=== PATIENT | female | born 1955 | race Caucasian/White ===

== ENCOUNTER 2024-05-16 20:01 | Emergency (ER) | payer MEDICARE, BC, SELFPAY ==
[2024-05-16 20:03] VITALS: BP 129/84; PULSE 73; RESP 17; TEMP 36.6; O2SAT 97; BMI 21.9
[2024-05-16 20:04] VITALS: PULSE 75; RESP 17; BMI 20.7
--- NOTE | 2024-05-16 20:05 | XR_ITS ---
Examination: AP chest single view Technique one AP portable semiupright chest single view Exam date and time: May 16, [id number] hrs. Indications: Syncope today Findings: Normal heart size No pneumonia or pulmonary edema The osseous structures are intact Impression: No aspiration pneumonia
--- NOTE | 2024-05-16 20:06 | PD.EDADULT ---
ED General RME/HPI General Chief complaint: Syncope / Near Syncope Stated complaint: SYNCOPAL EPISODE Time Seen by Provider: 05/16/24 20:04 Arrival date/time: 05/16/24 20:01 CC: Syncope versus near syncope HPI patient is mildly demented and per family report to EMS the patient reported to them that she had fallen . Patient is complaining of some low back pain which she said is new, patient is unable to state whether she lost consciousness or not. Family member state the patient has become mildly more confused over the recent past. Patient is awake alert aware of her self and surroundings. Does not appear in any acute distress More detailed interview. The patient states she slipped and fell in the bathroom striking her right hip on the toilet. Patient is not sure if she passed out or not. Patient is exceedingly poor historian is able to recall date time medications primary care doctor's name. Related Data Home Medications ?Medication ?Instructions ?Recorded ?Confirmed simvastatin 20 mg tablet (Zocor) 20 mg PO HS #0 tabs 12/15/16 04/05/18 calcium citrate 600 mg PO QDAY 03/02/18 04/05/18 cholecalciferol (vitamin D3) 125 25,000 unit PO QWEEK 03/02/18 04/05/18 mcg (5,000 unit) tablet (Vitamin D3) diclofenac sodium 75 mg 75 mg PO BID 03/02/18 04/05/18 tablet,delayed release multivitamin with minerals 1 tab PO QDAY 03/02/18 04/05/18 (Hair,Skin and Nails tablet) pantoprazole 20 mg tablet,delayed 20 mg PO QDAY 03/02/18 04/05/18 release sertraline 50 mg tablet (Zoloft) 50 mg PO QDAY 03/02/18 04/05/18 sumatriptan succinate 100 mg 100 mg PO BID 03/02/18 04/05/18 tablet (Imitrex) vitamin B comp with C no.4 150 mg 1 tab PO QDAY 03/02/18 04/05/18 tablet (Super B Complex + C) Allergies Allergy/AdvReac Type Severity Reaction Status Date / Time latex Allergy Unknown Verified 04/05/18 08:17 Review of Systems Review of Systems Narrative Review of Systems: GEN: No fever, no chills, no weight loss EYES: No discharge, no visual changes, no pain HEENT: No ear pain, no congestion, no sore throat PULM: No shortness of breath, no cough, no congestion CV: No chest pain, no dyspnea on exertion, no palpitations GI: No nausea, no vomiting, no diarrhea, no pain, no constipation : No frequency, no urgency, no dysuria MUSC/SKEL: No joint pain, no back pain SKIN: No rash PSYCH: No hallucinations, no depression HEME/LYMPH: No easy bleeding or bruising tendencies NEURO: No weakness, no headache, + near syncope ED Exam Narrative Physical exam: [General: Appears not acute distress Head normocephalic no step-offs hematoma induration ulceration or depression HEENT: Eyes: Pupils are PERRLA EOMs are intact conjunctiva not injected mouth pink moist membranes uvula is midline swallow symmetrical nose no rhinorrhea or otorrhea face: No raccoon's eyes velazco signs no ecchymosis or bleeding abrasions in the face. All other subsystems of ATTR within acceptable limits Neck is supple nontender including palpation of the spinous processes no JVD or edema. Full range of motion of the neck including rotation flexion and extension. Chest equal chest rise nontender to palpation Respiratory: Clear to auscultation no wheezes crackles or rubs CV: Rate rhythm is regular no murmurs rubs or clicks Abdomen is distended secondary to body habitus soft nontender no masses positive bowel sounds all 4 quadrants Back: Right paralumbar tenderness with palpation no spinous process tenderness no tenderness palpation of the thoracic and cervical spine. Skin: Intact no petechiae rash induration ulceration or crepitus Extremities: Moving all extremity against resistance cap refill less than 2 seconds neurosensory intact Neuro: Awake alert oriented x2, person and place, Glascow coma 15 no focal deficits] Course Quality Measures none Orders Category Date Time Status EKG (ED ONLY) *Do not use* NOW Care 05/16/24 20:[address] head/brain wo con Stat Exams 05/16/24 21:20 Completed EKG (ED Only) Stat Exams 05/16/24 20:05 Ordered XR chest 1V Stat Exams 05/16/24 20:05 Completed XR hip RT w pelvis 2-3V Stat Exams 05/16/24 21:12 Completed XR lumbar spine 2-3V Stat Exams 05/16/24 20:10 Completed B-Type Natriuretic Peptide Stat Lab 05/16/24 20:19 Completed CBC Stat Lab 05/16/24 20:19 Completed Comprehensive Metabolic Panel Stat Lab 05/16/24 20:19 Completed Drug Screen,Urine Stat Lab 05/16/24 20:27 Completed LDH (Lactate Dehydrogenase) Stat Lab 05/16/24 20:19 Completed Magnesium Stat Lab 05/16/24 20:19 Completed Partial Thromboplastin Time Stat Lab 05/16/24 20:19 Completed Prothrombin Time with INR Stat Lab 05/16/24 20:19 Completed Troponin I Stat Lab 05/16/24 20:19 Completed Urinalysis Stat Lab 05/16/24 20:27 Completed Vital Signs Vital signs: Vital Signs Temperature 97.9 F 05/16/24 20:03 Pulse Rate 73 05/16/24 20:03 Respiratory Rate 17 05/16/24 20:03 Blood Pressure 129/84 05/16/24 20:03 Pulse Oximetry (%) 97 05/16/24 20:03 Oxygen Delivery Method Room Air 05/16/24 20:[address] [facility] Patient data External records reviewed:: [facility] previous records and EMS form Clinical information provided by:: patient and EMS Social determinants that could affect healthcare access:: none Patient has the following chronic illnesses:: Dementia breast cancer How is presenting disease/condition affected by chronic disease/condition?: uneffected by Evaluation data The following diagnostics were reviewed and interpreted by me:: lab results, radiology exam(s) and EKG tracing(s) Lab and/or radiology exams considered but not ordered:: EKG performed at 2623 shows ventricular rate 60 DE interval 135 QRS of 101 QTc of 282 is a sinus rhythm left axis deviation. No old EKG for comparison. Interpretation Summary: Syncope Medications Medications considered but not ordered:: None Medication administrations:: None Consultations Consultation(s) initiated? (list below): No Diagnosis Differential Diagnosis ED Complaint MDM: ACS intracranial hemorrhage syncope Most likely diagnosis given after review of the tests above:: Syncope Admission Indicated Admission indicated?: not indicated Explain why admission is indicated or not indicated:: Stable for outpatient follow-up Admission Request Was there a request for admission?: No Disposition Plan Disposition Plan: Discharge Discharge Attestation Discharge Attestation: The patient and all family members were given an opportunity to ask questions and understood the discharge instructions. Discharge instructions specifically effects, indications for sooner follow up or return to the emergency department, and the expected course of current diagnosis. Patient condition: Stable Medical Decision Making Differential Diagnosis Differential Diagnosis: ACS intracranial hemorrhage syncope Lab Data 05/16/24 20:19 05/16/24 20:19 Labs: Lab Results 05/16/24 05/16/24 Range/Units 20:19 20:27 WBC 10.0 (3.6-11.0) Thou/mm3 RBC 4.90 (4.00-5.20) Miln/mm3 Hgb 14.4 (12.0-16.0) g/dL Hct 41.5 (36.0-46.0) % MCV 85 (80-100) fL MCH 29.4 (25.0-35.0) pg MCHC 34.7 (31.0-37.0) g/dl RDW Std Deviation 41.1 (36.4-46.3) fL Plt Count 190 (140-440) Thou/mm3 Neut % (Auto) 73 (37-80) % Lymph % (Auto) 19 (10-50) % [place] % (Auto) 6 (0-12) % Eos % (Auto) 1 (0-10) % Baso % (Auto) 0 (0-2.5) % Neut # (Auto) 7.3 (1.8-7.7) Thou/mm3 Lymph # (Auto) 1.9 (1.0-4.8) Thou/mm3 [place] # (Auto) 0.6 (0.0-0.8) Thou/mm3 Eos # (Auto) 0.1 (0.0-0.5) Thou/mm3 Baso # (Auto) 0.0 (0.0-0.2) Thou/mm3 Immature Gran # (Auto) 0.08 H (0.00-0.00) Thou/mm3 Absolute Nucleated RBC 0.00 (0.00-0.00) Thou/mm3 Immature Gran % 1 H (0-0) % Nucleated RBC % 0 (0) /100 WBC PT 11.4 (9.0-12.2) Seconds INR 1.0 (0.9-1.3) APTT 22.2 (22.0-36.0) Seconds Sodium 142 (136-145) mMol/L Potassium 3.0 L (3.4-5.1) mMol/L Chloride 105 (98-107) mMol/L Carbon Dioxide 26.3 (20.0-31.0) mMol/L Anion Gap 11 (7-16) BUN 10 (9-23) mg/dL Creatinine 0.9 (0.6-1.3) mg/dL Estim Creat Clear Calc 52.1 L (>60) mL/min eGFR > 60 (60 - ) See Note BUN/Creatinine Ratio 11 L (12-20) Ratio Glucose 127 H (74-106) mg/dL Calculated Osmolality 284 (275-295) Calcium 9.7 (8.3-10.6) mg/dL Corrected Calcium 9.7 (8.5-10.1) mg/dL Magnesium 1.7 (1.6-2.6) mg/dL Total Bilirubin 0.5 (0.3-1.2) mg/dL AST 21 (0-34) U/L ALT 20 (10-49) U/L Alkaline Phosphatase 96 (46-116) U/L Lactate Dehydrogenase 192 (120-246) U/L Troponin I < 0.020 (0.0-0.045) ng/mL B-Natriuretic Peptide < 20 (0-100) pg/mL Total Protein 6.3 (5.7-8.2) gm/dL Albumin 4.2 (3.4-4.8) gm/dL Globulin 2.1 L (2.3-3.5) gm/dL Albumin/Globulin Ratio 2.0 (1.2-2.2) Ur Collection Type Clean Catch Urine Color Lt-Yellow (Lt Yel-Yel) Urine Clarity Clear (Clear/Hazy) Urine pH 6.0 (5.0-7.0) Ur Specific [place] 1.007 (1.001-1.035) Urine Protein Negative (Neg - Trace) Urine Glucose (UA) Negative (Negative) Urine Ketones Negative (Negative) Urine Blood Negative (Negative) Urine Nitrite Negative (Negative) Urine Bilirubin Negative (Negative) Urine Urobilinogen (Auto) Negative (0.0-1.0) mg/dL Ur Leukocyte Esterase Negative (Negative) Urine RBC 0 (0-3) /hpf Urine WBC 1 (0-5) /hpf Ur Squamous Epith Cells < 1 (0-5) /hpf Urine Bacteria None (None) Urine Opiates Screen Negative (Negative) Urine Fentanyl Screen Negative (Negative) Ur Barbiturates Screen Negative (Negative) U Amphetamin/Meth Scrn Negative (Negative) U Benzodiazepines Scrn Negative (Negative) U Cocaine Metab Screen Negative (Negative) U Marijuana (THC) Screen Negative (Negative) Discharge Plan Plan Patient Disposition: HOME (Self Care) Patient condition on transfer: Stable Prescriptions/Referrals Prescriptions/Med Rec: No Action simvastatin [Zocor] 20 MG tablet 20 mg PO HS Qty: 0 sumatriptan succinate [Imitrex] 100 mg Tablet 100 mg PO BID pantoprazole 20 mg Tablet,Delayed Release (Dr/Ec) 20 mg PO QDAY multivitamin with minerals [Hair,Skin and Nails] Tablet 1 tab PO QDAY sertraline [Zoloft] 50 mg Tablet 50 mg PO QDAY calcium citrate 250 mg calcium Tablet 600 mg PO QDAY vitamin B comp with C no.4 [Super B Complex + C] 150 mg Tablet 1 tab PO QDAY cholecalciferol (vitamin D3) [Vitamin D3] 5,000 unit Tablet 25,000 unit PO QWEEK diclofenac sodium 75 mg Tablet,Delayed Release (Dr/Ec) 75 mg PO BID Referrals: Melissa Bravo, [employer] INSPECTOR [Primary Care Provider] - In 1 week Problem List Clinical Impression: Fall, Contusion of hip, right Patient/Caregiver Discharge Instructions Education Materials: Preventing Falls How to ..., Bone Contusion, ED Hip Contusion Print Language: Vincentian Stand Alone Forms: Nathalie Award Info., Work/School Release, Patient Portal Info Letter PA/VIKRAM Supervising Physician PA/WIC SITE COORDINATOR Supervising Physician: Akin Georges ENP
--- NOTE | 2024-05-16 20:10 | XR_ITS ---
Examination: Lumbar spine 3 views Technique one AP lateral coned lateral lower lumbar spine 3 views Exam date and time: May 16, [id number] hrs. Indications: Patient fell today with injury to the back, lower back pain. Findings: Significant osteopenia Lumbar levoscoliosis 15 degrees No acute lumbar fracture Advanced disc narrowing L1-L2 Moderate lumbar spondylosis Impression: No acute lumbar fracture
[2024-05-16 20:19] VITALS: BP 128/76; PULSE 73; RESP 24; O2SAT 92
[2024-05-16 20:28] LABS: Basophils % (Auto) 0 % (0-2.5); Eosinophils # (Auto) 0.1 Thou/mm3 (0.0-0.5); Eosinophils % (Auto) 1 % (0-10); Hematocrit 41.5 % (36.0-46.0); Hemoglobin 14.4 g/dL (12.0-16.0); Immature Granulocytes % (Auto) 1 % (0-0); Immature Granulocytes Auto 0.08 Thou/mm3 (0.00-0.00); Lymphocytes # (Auto) 1.9 Thou/mm3 (1.0-4.8); Lymphocytes % (Auto) 19 % (10-50); Mean Corpuscular HGB Conc 34.7 g/dl (31.0-37.0); Mean Corpuscular Hemoglobin 29.4 pg (25.0-35.0); Mean Corpuscular Volume 85 fL (80-100); Monocytes # (Auto) 0.6 Thou/mm3 (0.0-0.8); Monocytes % (Auto) 6 % (0-12); Neutrophils # (Auto) 7.3 Thou/mm3 (1.8-7.7); Neutrophils % (Auto) 73 % (37-80); Nucleated Red Blood Cell % 0 /100 WBC (0); Platelet Count 190 Thou/mm3 (140-440); RDW Standard Deviation 41.1 fL (36.4-46.3)
[2024-05-16 20:45] LABS: Partial Thromboplastin Time 22.2 Seconds (22.0-36.0); Prothrombin Time 11.4 Seconds (9.0-12.2)
[2024-05-16 21:01] LABS: B-Type Natriuretic Peptide < 20 pg/mL (0-100)
[2024-05-16 21:05] LABS: Collection Type, Urine Clean Catch; RBC,Urine 0 /hpf (0-3)
[2024-05-16 21:05] LABS: Alanine Aminotransferase 20 U/L (10-49); Albumin, Serum 4.2 gm/dL (3.4-4.8); Alkaline Phosphatase 96 U/L (46-116); Anion Gap 11 (7-16); Aspartate Amino Transferase 21 U/L (0-34); BUN/Creatinine Ratio 11 Ratio (12-20); Bilirubin,Total 0.5 mg/dL (0.3-1.2); Blood Urea Nitrogen 10 mg/dL (9-23); Calcium 9.7 mg/dL (8.3-10.6); Calcium (Corrected) 9.7 mg/dL (8.5-10.1); Carbon Dioxide 26.3 mMol/L (20.0-31.0); Chloride 105 mMol/L (98-107); Creatinine (Component) 0.9 mg/dL (0.6-1.3); Estimated Creatinine Clearance 52.1 mL/min (>60); Globulin 2.1 gm/dL (2.3-3.5); Glucose 127 mg/dL (74-106); Magnesium 1.7 mg/dL (1.6-2.6); Osmolality,Calculated 284 (275-295); Sodium 142 mMol/L (136-145); Total Protein 6.3 gm/dL (5.7-8.2); Troponin I < 0.020 ng/mL (0.0-0.045); eGFR > 60 See Note
[2024-05-16 21:11] LABS: Bilirubin,Urine Negative (Negative); Blood,Urine Negative (Negative); Clarity,Urine Clear (Clear/Hazy); Color,Urine Lt-Yellow (Lt Yel-Yel); Glucose, Urine Negative (Negative); Ketones,Urine Negative (Negative); Leukocyte Esterase,Urine Negative (Negative); Nitrite,Urine Negative (Negative); Protein,Urine Negative (Neg - Trace); Specific Gravity,Urine 1.007 (1.001-1.035); Squamous Epithelial Cell,Urine < 1 /hpf (0-5); Urobilinogen,Urine Negative mg/dL (0.0-1.0); WBC,Urine 1 /hpf (0-5)
--- NOTE | 2024-05-16 21:12 | XR_ITS ---
Examination:Right hip AP, lateral, AP pelvis 3 views Technique: Hip AP lateral, AP pelvis, 3 views Exam date and time:May 16, 2024 2147 hrs. Indications: Patient fell today with injury to the right hip, right hip pain. Findings: No acute fracture No hip dislocation Left hip bones of the pelvis intact Impression: No acute hip or pelvic fracture If pain persists, recommend 1-2 day follow-up AP pelvis film.
[2024-05-16 21:18] LABS: Amphetamine/Methamp Scrn,U Negative (Negative); Barbiturate Screen,Urine Negative (Negative); Benzodiazepines Screen,Urine Negative (Negative); Benzoylecgonine Screen, Ur Negative (Negative); Fentanyl Screen,Urine Negative (Negative); Opiate Screen,Urine Negative (Negative); THC Screen,Urine Negative (Negative)
[2024-05-16 21:20] LABS: LDH (Lactate Dehydrogenase) 192 U/L (120-246)
--- NOTE | 2024-05-16 21:20 | XR_ITS ---
Examination: CT brain head without contrast. 2-D sagittal coronal reconstructions Date and time of exam:May 16, 2024 1045 hrs. Indications: Patient fell today with injury to the head, head pain CTDI: vol (mGy):45.7 DLP: (mGycm):876 Technique: Multiple CT axial sections of the brain have been obtained, 5 mm slice thickness. Contrast has not been administered. 2-D sagittal, coronal reconstructions have been obtained Low dose protocols were performed. One or more of the following dose reduction techniques were used; automated exposure control, adjustment of the mA and/or KV according to patient size, use of iterative reconstruction technique. Findings: No significant ventricular enlargement. Intra-axial or extra-axial hemorrhage density is not seen. No mass effect or midline shift Basal cisterns are not remarkable. Fourth ventricle is midline. Cranial vault intact. Impression: Negative for acute hemorrhage, mass effect or midline shift
[2024-05-17 00:11] VITALS: BP 114/72; PULSE 72; TEMP 36.8; O2SAT 97
== END 2024-05-17 00:45 | disposition home or self-care (01) ==
PROVIDERS: Registered Nurse General Practice; Emergency Provider Emergency Medicine; PCP Registered Nurse
DX: S70.01XA Contusion of right hip, initial encounter (principal); R55 Syncope and collapse; S39.92XA Unspecified injury of lower back, initial encounter; S09.90XA Unspecified injury of head, initial encounter; F03.90 Unspecified dementia, unspecified severity, without behavioral disturbance, psychotic disturbance, mood disturbance, and anxiety; R94.31 Abnormal electrocardiogram [ECG] [EKG]; W01.198A Fall on same level from slipping, tripping and stumbling with subsequent striking against other object, initial encounter
CPT/HCPCS: 36415; 70450; 71045; 72100; 73502; 80053; 80307; 81001; 83615; 83735; 83880; 84484; 85025; 85610; 85730; 93005; 99284

== ENCOUNTER 2024-07-16 12:36 | Emergency (ER) | payer MEDICARE, SELFPAY ==
[2024-07-16 12:54] VITALS: BP 135/81; PULSE 91; RESP 18; TEMP 36.7; O2SAT 98; BMI 22.5
--- NOTE | 2024-07-16 12:57 | PD.EDRME ---
Rapid Medical Screening Exam [facility] Arrival date/time: 07/16/24 12:36 69-year-old female with a history of dementia, breast cancer, presents to the emergency room with a chief complaint of nausea and vomiting x 3 weeks. Family at bedside states the patient oral intake has significantly decreased. And that she vomits after taking her medication and eating. Family at bedside states that she has had increased weakness and fatigue. I have greeted and performed a focused initial assessment of this patient. A comprehensive ED assessment and evaluation of the patient, analysis of all test results, and completion of the medical decision making process will be conducted by additional ED providers. Chief Complaint: Nausea/Vomiting/Diarrhea Vital signs: Vital Signs Temperature 98.1 F 07/16/24 12:54 Pulse Rate 91 07/16/24 12:54 Respiratory Rate 18 07/16/24 12:54 Blood Pressure 135/81 H 07/16/24 12:54 Pulse Oximetry (%) 98 07/16/24 12:54 Oxygen Delivery Method Room Air 07/16/24 12:54 Vital signs reviewed by provider: Yes
[2024-07-16 13:12] LABS: Basophils % (Auto) 0 % (0-2.5); Eosinophils % (Auto) 0 % (0-10); Hematocrit 46.9 % (36.0-46.0); Hemoglobin 16.1 g/dL (12.0-16.0); Immature Granulocytes % (Auto) 0 % (0-0); Immature Granulocytes Auto 0.03 Thou/mm3 (0.00-0.00); Lymphocytes # (Auto) 1.5 Thou/mm3 (1.0-4.8); Lymphocytes % (Auto) 15 % (10-50); Mean Corpuscular HGB Conc 34.3 g/dl (31.0-37.0); Mean Corpuscular Hemoglobin 29.1 pg (25.0-35.0); Mean Corpuscular Volume 85 fL (80-100); Monocytes # (Auto) 0.6 Thou/mm3 (0.0-0.8); Monocytes % (Auto) 6 % (0-12); Neutrophils # (Auto) 7.8 Thou/mm3 (1.8-7.7); Neutrophils % (Auto) 78 % (37-80); Nucleated Red Blood Cell % 0 /100 WBC (0); Platelet Count 240 Thou/mm3 (140-440); RDW Standard Deviation 42.4 fL (36.4-46.3); Red Blood Count 5.54 Miln/mm3 (4.00-5.20)
[2024-07-16] MEDS: ONDANSETRON ODT 4 MG TABRAP PO (13:20)
[2024-07-16 14:01] LABS: Alanine Aminotransferase 17 U/L (10-49); Albumin, Serum 4.6 gm/dL (3.4-4.8); Alkaline Phosphatase 77 U/L (46-116); Anion Gap 16 (7-16); Aspartate Amino Transferase 22 U/L (0-34); BUN/Creatinine Ratio 15 Ratio (12-20); Bilirubin,Total 0.7 mg/dL (0.3-1.2); Blood Urea Nitrogen 12 mg/dL (9-23); Calcium 9.7 mg/dL (8.3-10.6); Calcium (Corrected) 9.7 mg/dL (8.5-10.1); Carbon Dioxide 21.8 mMol/L (20.0-31.0); Chloride 102 mMol/L (98-107); Creatinine (Component) 0.8 mg/dL (0.6-1.3); Estimated Creatinine Clearance 49.4 mL/min (>60); Globulin 2.3 gm/dL (2.3-3.5); Glucose 94 mg/dL (74-106); Lipase 46 U/L (12-53); Osmolality,Calculated 279 (275-295); Potassium 3.4 mMol/L (3.4-5.1); Sodium 140 mMol/L (136-145); Total Protein 6.9 gm/dL (5.7-8.2); eGFR > 60 See Note
[2024-07-16 15:48] VITALS: BP 119/82; PULSE 83; RESP 14; TEMP 36.8; O2SAT 97
--- NOTE | 2024-07-16 17:25 | EDNOTE_ITS ---
<Statement entered by Stephany Gan MD - 07/18/24 01:46> As co-signing physician, I was present and available for consult prn. I concur with the plan and care as documented by the midlevel provider. ED General RME/HPI General Chief complaint: Nausea/Vomiting/Diarrhea Stated complaint: VOMITS IN AM X 3 WKS; BARELY EATS Time Seen by Provider: 07/16/24 17:19 Arrival date/time: 07/16/24 12:36 CC: Nausea vomiting HPI ongoing intermittent for the past 3 weeks. Family member states the patient has poor p.o. intake. Patient is a fairly poor historian. Review the medical records show a history of ductal breast cancer with mastectomy years ago. RME / HPI RME / HPI narrative: 07/16/24 12:36 69-year-old female with a history of dementia, breast cancer, presents to the emergency room with a chief complaint of nausea and vomiting x 3 weeks. Family at bedside states the patient oral intake has significantly decreased. And that she vomits after taking her medication and eating. Family at bedside states that she has had increased weakness and fatigue. I have greeted and performed a focused initial assessment of this patient. A comprehensive ED assessment and evaluation of the patient, analysis of all test results, and completion of the medical decision making process will be conducted by additional ED providers. Related Data Home Medications ?Medication ?Instructions ?Recorded ?Confirmed simvastatin 20 mg tablet (Zocor) 20 mg PO HS #0 tabs 0 12/15/16 04/05/18 calcium citrate 600 mg PO QDAY 03/02/1803/24 cholecalciferol (vitamin D3) 125 25,000 unit PO QWEEK 03/02/18 04/05/18 mcg (5,000 unit) tablet (Vitamin D3) diclofenac sodium 75 mg 75 mg PO BID 03/02/18 tablet,delayed release multivitamin with minerals 1 tab PO QDAY 03/02/1803/24 (Hair,Skin and Nails tablet) pantoprazole 20 mg tablet,delayed 20 mg PO QDAY 04/05/18 release sertraline 50 mg tablet (Zoloft) 50 mg PO QDAY 8 04/05/18 sumatriptan succinate 100 mg 100 mg PO BID 03/02/18 tablet (Imitrex) vitamin B comp with C no.4 150 mg 1 tab PO QDAY 04/05/18 tablet (Super B Complex + C) Previous Rx's ?Medication ?Instructions ?Recorded ondansetron 4 mg disintegrating 4 mg PO Q8H #20 tabs 0 07/16/24 tablet Allergies Allergy/AdvReac Type Severity Reaction Status Date / Time latex Allergy Unknown Verified 07/16/24 12:38 Review of Systems Review of Systems Narrative Review of Systems: GEN: No fever, no chills, no weight loss EYES: No discharge, no visual changes, no pain HEENT: No ear pain, no congestion, no sore throat PULM: No shortness of breath, no cough, no congestion CV: No chest pain, no dyspnea on exertion, no palpitations GI: No nausea, no vomiting, no diarrhea, no pain, no constipation : No frequency, no urgency, no dysuria MUSC/SKEL: No joint pain, no back pain SKIN: No rash PSYCH: No hallucinations, no depression HEME/LYMPH: No easy bleeding or bruising tendencies NEURO: No weakness, no headache Past Medical History Past Medical History NEUROLOGIC: Positive Neurological Disorders and Migraine; Negative Seizures CARDIAC: Positive Cardiac Disorders and Hypercholesterolemia; Negative Congestive Heart Failure RESPIRATORY: Negative Chronic Obstructive Pulmonary Disease (COPD) GASTROINTESTINAL: Positive Gastrointestinal Disorders and Gastroesophageal Reflux Disease GENITOURINARY: Negative Genitourinary Disorders or Renal Disease REPRODUCTIVE: Positive Breast Cancer MUSCULOSKELETAL: Negative Musculoskeletal Disorders ENT: Positive Cataracts ENDOCRINE: Negative Endocrine Disorders, Diabetes Mellitus Type 1 or Diabetes Mellitus Type 2 HEMATOLOGIC: Negative Blood Disorders PSYCHO/SOCIAL: Positive Depression and Anxiety OTHER HISTORY: Positive Breast Cancer; Negative Blood Transfusions, Blood Transfusion Reaction or Anesthesia Reactions Surgical History SURGICAL: Positive Abdominal Surgery; Negative Cardiac Surgery, Endocrine Surgery or Neurologic Surgery Social History SMOKING STATUS: Never smoker ED Exam Narrative Physical exam: [General: Deconditioned but not emaciated not in any acute distress Head normocephalic HEENT: Within acceptable limits Neck is supple nontender Chest equal chest rise nontender to palpation Respiratory: Clear to auscultation no wheezes crackles or rubs CV: Rate rhythm is regular no murmurs rubs or clicks Abdomen is flat, soft nontender no masses positive bowel sounds all 4 quadrants Back: No CVA tenderness no spinous process tenderness from cervical spine thoracic and lumbar spine Skin: Intact no petechiae rash induration ulceration or crepitus Extremities: Moving all extremity against resistance cap refill less than 2 seconds neurosensory intact Neuro: Awake alert oriented x2, person and place Glascow coma 15 no focal deficits] Course Quality Measures none Orders Category Date Time Status Saline [Insert IV] NOW Care 07/16/24 17:20 Active CBC Stat Lab 07/16/24 13:00 Completed CMP [Comprehensive Metabolic Panel] Stat Lab 07/16/24 13:00 Completed Creatine Kinase Stat Lab 07/16/24 13:00 Completed Lipase Stat Lab 07/16/24 13:00 Completed UA [Urinalysis] Stat Lab 07/16/24 21:04 Completed Urine Culture Stat Lab 07/16/24 21:04 Received Ondansetron Odt [Zofran Odt] Med 07/16/24 12:57 Discontinued 4 mg PO X1 ONE Sodium Chloride 0.9% 1000 ml [Ns] 1,000 ml Med 07/16/24 17:20 Discontinued IV 999 mls/hr Vital Signs Vital signs: Vital Signs Temperature 98.1 F 07/16/24 12:54 Pulse Rate 91 07/16/24 12:54 Respiratory Rate 18 07/16/24 12:54 Blood Pressure 135/81 H 07/16/24 12:54 Pulse Oximetry (%) 98 07/16/24 12:54 Oxygen Delivery Method Room Air 07/16/24 12:54 [facility] Patient data [place] [facility] [place] Clinical information provided by:: patient and family Social determinants that could affect healthcare access:: none Patient has the following chronic illnesses:: Breast cancer hypercholesterolemia How is presenting disease/condition affected by chronic disease/condition?: u neffected by Evaluation data The following diagnostics were reviewed and interpreted by me:: lab results and radiology exam(s) Lab and/or radiology exams considered but not ordered:: CBC shows no leukocytosis patient is hemoconcentrated at 16.1 and 46.9 platelets of 240. CMP shows no significant electrolyte imbalances renal impairment transaminitis or T. bili elevation. Lipase of 46. Urine shows 4+ ketones. No other acute finding suggestive of UTI Interpretation Summary: Patient appears dry but there is no clinical indication elevated BUN and creatinine. Patient has had no episodes of nausea vomiting throughout her visit the emergency room at this time comfortable discharging the patient Medications Medications considered but not ordered:: None Medication administrations:: Medication Administration History Discontinued Medications Sodium Chloride (Ns) 1,000 mls @ 999 mls/hr IV .Q1H1M ONE Stop: 07/16/24 18:20 Last Infusion: 07/16/24 18:59 Dose: Infused Documented By: Admin: 07/16/24 17:53 Dose: 999 mls/hr Documented By: BD Ondansetron HCl (Ondansetron Odt 4 Mg Tabrap) 4 mg PO X1 ONE; Protocol Stop: 07/16/24 12:58 Last Admin: 07/16/24 13:20 Dose: 4 mg Documented By: KF None Consultations Consultation(s) initiated? (list below): No Diagnosis Differential Diagnosis ED Complaint MDM: Electrolyte imbalances dehydration viral syndrome Most likely diagnosis given after review of the tests above:: Nausea vomiting Admission Indicated Admission indicated?: not indicated Explain why admission is indicated or not indicated:: Stable for discharge Admission Request Was there a request for admission?: No Disposition Plan Disposition Plan: Discharge Discharge Attestation Discharge Attestation: The patient and all family members were given an opportunity to ask questions and understood the discharge instructions. Discharge instructions specifically effects, indications for sooner follow up or return to the emergency department, and the expected course of current diagnosis. Patient condition: Stable Medical Decision Making Differential Diagnosis Differential Diagnosis: Electrolyte imbalances dehydration viral syndrome Lab Data 07/16/24 13:00 07/16/24 13:00 Labs: Lab Results 07/16/24 07/16/24 Range/Units 13:00 21:04 WBC 10.0 (3.6-11.0) Thou/mm3 RBC 5.54 H (4.00-5.20) Miln/mm3 Hgb 16.1 H (12.0-16.0) g/dL Hct 46.9 H (36.0-46.0) % MCV 85 (80-100) fL MCH 29.1 (25.0-35.0) pg MCHC 34.3 (31.0-37.0) g/dl RDW Std Deviation 42.4 (36.4-46.3) fL Plt Count 240 (140-440) Thou/mm3 Neut % (Auto) 78 (37-80) % Lymph % (Auto) 15 (10-50) % [place] % (Auto) 6 (0-12) % Eos % (Auto) 0 (0-10) % Baso % (Auto) 0 (0-2.5) % Neut # (Auto) 7.8 H (1.8-7.7) Thou/mm3 Lymph # (Auto) 1.5 (1.0-4.8) Thou/mm3 [place] # (Auto) 0.6 (0.0-0.8) Thou/mm3 Eos # (Auto) 0.0 (0.0-0.5) Thou/mm3 Baso # (Auto) 0.0 (0.0-0.2) Thou/mm3 Immature Gran # (Auto) 0.03 H (0.00-0.00) Thou/mm3 Absolute Nucleated RBC 0.00 (0.00-0.00) Thou/mm3 Immature Gran % 0 (0-0) % Nucleated RBC % 0 (0) /100 WBC Sodium 140 (136-145) mMol/L Potassium 3.4 (3.4-5.1) mMol/L Chloride 102 (98-107) mMol/L Carbon Dioxide 21.8 (20.0-31.0) mMol/L Anion Gap 16 (7-16) BUN 12 (9-23) mg/dL Creatinine 0.8 (0.6-1.3) mg/dL Estim Creat Clear Calc 49.4 L (>60) mL/min eGFR > 60 (60 - ) See Note BUN/Creatinine Ratio 15 (12-20) Ratio Glucose 94 (74-106) mg/dL Calculated Osmolality 279 (275-295) Calcium 9.7 (8.3-10.6) mg/dL Corrected Calcium 9.7 (8.5-10.1) mg/dL Total Bilirubin 0.7 (0.3-1.2) mg/dL AST 22 (0-34) U/L ALT 17 (10-49) U/L Alkaline Phosphatase 77 (46-116) U/L Total Creatine Kinase 94 (34-171) U/L Total Protein 6.9 (5.7-8.2) gm/dL Albumin 4.6 (3.4-4.8) gm/dL Globulin 2.3 (2.3-3.5) gm/dL Albumin/Globulin Ratio 2.0 (1.2-2.2) Lipase 46 (12-53) U/L Ur Collection Type Clean Catch Urine Color Lt-Yellow (Lt Yel-Yel) Urine Clarity Clear (Clear/Hazy) Urine pH 5.5 (5.0-7.0) Ur Specific [place] 1.024 (1.001-1.035) Urine Protein Trace (Neg - Trace) Urine Glucose (UA) Negative (Negative) Urine Ketones 4+ A (Negative) Urine Blood Negative (Negative) Urine Nitrite Negative (Negative) Urine Bilirubin Negative (Negative) Urine Urobilinogen (Auto) 2.0 (0.0-1.0) mg/dL Ur Leukocyte Esterase Negative (Negative) Urine RBC 2 (0-3) /hpf Urine WBC 1 (0-5) /hpf Ur Squamous Epith Cells < 1 (0-5) /hpf Urine Bacteria None (None) Discharge Plan Plan Patient Disposition: HOME (Self Care) Patient condition on transfer: Stable Prescriptions/Referrals Prescriptions/Med Rec: New ondansetron 4 mg tablet,disintegrating 4 mg PO Q8H Qty: 20 0RF No Action simvastatin [Zocor] 20 MG tablet 20 mg PO HS Qty: 0 sumatriptan succinate [Imitrex] 100 mg Tablet 100 mg PO BID pantoprazole 20 mg Tablet,Delayed Release (Dr/Ec) 20 mg PO QDAY multivitamin with minerals [Hair,Skin and Nails] Tablet 1 tab PO QDAY sertraline [Zoloft] 50 mg Tablet 50 mg PO QDAY calcium citrate 250 mg calcium Tablet 600 mg PO QDAY vitamin B comp with C no.4 [Super B Complex + C] 150 mg Tablet 1 tab PO QDAY cholecalciferol (vitamin D3) [Vitamin D3] 5,000 unit Tablet 25,000 unit PO QWEEK diclofenac sodium 75 mg Tablet,Delayed Release (Dr/Ec) 75 mg PO BID Referrals: Melissa Bravo NP [Primary Care Provider] - In 1 week Problem List Clinical Impression: Nausea & vomiting Patient/Caregiver Discharge Instructions Other Activity Instructions:: Take the medications as needed for nausea vomiting Kerch plenty of fluids if there is worsening of symptoms follow-up with your primary care provider return the emergency room for reevaluation. Education Materials: Self-Care for Vomiting and Diarrhea, ED Diet for Vomiting or ... Print Language: Yakut Stand Alone Forms: Nathalie [employer]Khn Info., Patient Portal Info Letter, Work/School Release PA/TALENT DIRECTOR Supervising Physician PA/TALENT DIRECTOR Supervising Physician: Inocente Georges ENP
--- NOTE | 2024-07-16 17:28 | PC.NURSE ---
PT HERE WITH BED SIDE HX OF DEMENTIA PT HAS HAD N/V/D FOR 3 WEEKS DECREASED APPETITE. PT IS AWAKE AND ALERT AND COOPERATIVE WAS ABLE TO ANSWER QUESTIONS.
[2024-07-16] MEDS: SODIUM CHLORIDE 0.9% 1000 ML 1,000 ML 999 ML IV (17:53)
[2024-07-16 18:16] LABS: Creatine Kinase 94 U/L (34-171)
[2024-07-16 18:39] VITALS: BP 130/62; PULSE 68; RESP 16; O2SAT 96
[2024-07-16 21:08] LABS: Collection Type, Urine Clean Catch
[2024-07-16 21:09] VITALS: BP 112/68; PULSE 68; RESP 16; TEMP 36.9; O2SAT 96
[2024-07-16 21:14] LABS: Bilirubin,Urine Negative (Negative); Blood,Urine Negative (Negative); Clarity,Urine Clear (Clear/Hazy); Color,Urine Lt-Yellow (Lt Yel-Yel); Glucose, Urine Negative (Negative); Ketones,Urine 4+ (Negative); Leukocyte Esterase,Urine Negative (Negative); Nitrite,Urine Negative (Negative); PH,Urine 5.5 (5.0-7.0); Protein,Urine Trace (Neg - Trace); RBC,Urine 2 /hpf (0-3); Specific Gravity,Urine 1.024 (1.001-1.035); Squamous Epithelial Cell,Urine < 1 /hpf (0-5); WBC,Urine 1 /hpf (0-5)
[2024-07-16 21:53] VITALS: RESP 18
== END 2024-07-16 21:54 | disposition home or self-care (01) ==
PROVIDERS: Nurse Practitioner Family; Registered Nurse General Practice; Emergency Provider Emergency Medicine; PCP Registered Nurse
DX: R11.2 Nausea with vomiting, unspecified (principal)
CPT/HCPCS: 36415; 80053; 81001; 82550; 83690; 85025; 87086; 96360; 99284; J7030; Q0162

== ENCOUNTER → 2024-07-25 | Outpatient (CLI) | payer MEDICARE, BC, SELFPAY ==
[2024-07-25 12:42] LABS: Basophils % (Auto) 0 % (0-2.5); Eosinophils % (Auto) 0 % (0-10); Hematocrit 45.4 % (36.0-46.0); Hemoglobin 15.9 g/dL (12.0-16.0); Immature Granulocytes % (Auto) 0 % (0-0); Immature Granulocytes Auto 0.03 Thou/mm3 (0.00-0.00); Lymphocytes # (Auto) 1.4 Thou/mm3 (1.0-4.8); Lymphocytes % (Auto) 19 % (10-50); Mean Corpuscular Hemoglobin 29.3 pg (25.0-35.0); Mean Corpuscular Volume 84 fL (80-100); Monocytes # (Auto) 0.4 Thou/mm3 (0.0-0.8); Monocytes % (Auto) 6 % (0-12); Neutrophils # (Auto) 5.4 Thou/mm3 (1.8-7.7); Neutrophils % (Auto) 74 % (37-80); Nucleated Red Blood Cell % 0 /100 WBC (0); Platelet Count 204 Thou/mm3 (140-440); RDW Standard Deviation 42.6 fL (36.4-46.3); Red Blood Count 5.42 Miln/mm3 (4.00-5.20); White Blood Count 7.3 Thou/mm3 (3.6-11.0)
[2024-07-25 12:48] LABS: Glucose Estimated Average 91 mg/dL (80-131); Hemoglobin A1C 4.8 % Hgb (4.8-6.0)
[2024-07-25 12:56] LABS: Alanine Aminotransferase 16 U/L (10-49); Albumin, Serum 4.3 gm/dL (3.4-4.8); Albumin/Globulin Ratio 2.4 (1.2-2.2); Alkaline Phosphatase 70 U/L (46-116); Anion Gap 13 (7-16); Aspartate Amino Transferase 15 U/L (0-34); BUN/Creatinine Ratio 9 Ratio (12-20); Bilirubin,Total 0.7 mg/dL (0.3-1.2); Blood Urea Nitrogen 7 mg/dL (9-23); Calcium 9.4 mg/dL (8.3-10.6); Calcium (Corrected) 9.4 mg/dL (8.5-10.1); Carbon Dioxide 28.4 mMol/L (20.0-31.0); Cardiac Risk Estimate 2.6 RATIO (3.7-5.6); Chloride 100 mMol/L (98-107); Cholesterol 128 mg/dL (132-200); Creatinine (Component) 0.8 mg/dL (0.6-1.3); Globulin 1.8 gm/dL (2.3-3.5); Glucose 115 mg/dL (74-106); HDL Cholesterol 49 mg/dL (40-60); LDL Cholesterol,Calculated 57 mg/dL (0-130); Osmolality,Calculated 280 (275-295); Potassium 3.2 mMol/L (3.4-5.1); Sodium 141 mMol/L (136-145); Thyroid Stimulating Hormone 2.56 uIU/mL (0.55-4.78); Total Protein 6.1 gm/dL (5.7-8.2); Triglycerides 109 mg/dL (30-150); Vitamin B12 676 pg/mL (211-911); Vitamin D 25 Hydroxy Total 49.4 ng/mL (7.3-40.2); eGFR > 60 See Note
== END | disposition home or self-care (01) ==
LOC: COPL 11:44
PROVIDERS: PCP Registered Nurse; Referring Provider Registered Nurse; Visit Provider Registered Nurse
DX: Z00.00 Encounter for general adult medical examination without abnormal findings (principal); I10 Essential (primary) hypertension; E78.5 Hyperlipidemia, unspecified; R79.89 Other specified abnormal findings of blood chemistry
CPT/HCPCS: 36415; 80053; 80061; 81001; 82306; 82607; 83036; 84443; 85025

== ENCOUNTER → 2024-07-27 | Outpatient (CLI) | payer MEDICARE, BC, SELFPAY ==
--- NOTE | 2024-07-27 15:58 | XR_ITS ---
Examination: PA lateral chest 2 views Technique: Upright PA lateral chest 2 views Exam date and time: July 27, 2024 1613 hrs. Comparison May 16, 2024 Indications: Difficulty breathing beginning ventricle. Findings: Normal heart size. Lungs are clear. The osseous structures are demineralized with old fracture right humeral neck Impression: No active disease
[2024-07-28 10:46] LABS: B-Type Natriuretic Peptide < 20 pg/mL (0-100)
[2024-07-28 12:31] LABS: Cocci Serology, IgM Negative (Negative)
[2024-07-29 14:00] LABS: Cocci Serology, IgG Negative (Negative)
== END | disposition home or self-care (01) ==
LOC: SDIM 15:51
PROVIDERS: PCP Registered Nurse; Referring Provider Registered Nurse; Visit Provider Registered Nurse
DX: M79.18 Myalgia, other site (principal); R06.00 Dyspnea, unspecified
CPT/HCPCS: 36415; 71046; 83880; 86331; 86635

== ENCOUNTER → 2024-07-31 | Outpatient (CLI) | payer MEDICARE, BC, SELFPAY ==
[2024-07-31 12:31] LABS: Collection Type, Urine Clean Catch
[2024-07-31 13:58] LABS: Bilirubin,Urine Negative (Negative); Blood,Urine Negative (Negative); Clarity,Urine Clear (Clear/Hazy); Color,Urine Lt-Yellow (Lt Yel-Yel); Culture Indicated,Urine Not Indicated; Glucose, Urine Negative (Negative); Ketones,Urine 1+ (Negative); Leukocyte Esterase,Urine Negative (Negative); Nitrite,Urine Negative (Negative); Protein,Urine Negative (Neg - Trace); RBC,Urine 1 /hpf (0-3); Specific Gravity,Urine 1.012 (1.001-1.035); Squamous Epithelial Cell,Urine < 1 /hpf (0-5); Urobilinogen,Urine Negative mg/dL (0.0-1.0); WBC,Urine 1 /hpf (0-5)
== END | disposition home or self-care (01) ==
PROVIDERS: Referring Provider Registered Nurse; Visit Provider Registered Nurse
DX: Z00.00 Encounter for general adult medical examination without abnormal findings (principal); R79.89 Other specified abnormal findings of blood chemistry; I10 Essential (primary) hypertension; E78.5 Hyperlipidemia, unspecified
CPT/HCPCS: 81001

== ENCOUNTER → 2024-08-09 | Outpatient (CLI) | payer MEDICARE, BC, SELFPAY ==
[2024-08-09 17:10] LABS: Urea Breath Test Negative (Negative)
== END | disposition home or self-care (01) ==
LOC: COPL 12:51
PROVIDERS: PCP Family Medicine; Referring Provider Registered Nurse; Visit Provider Registered Nurse
DX: R11.2 Nausea with vomiting, unspecified (principal)
CPT/HCPCS: 83013; 83014

== ENCOUNTER → 2024-09-01 | Outpatient (CLI) | payer MEDICARE, BC, SELFPAY ==
[2024-09-01 17:16] LABS: Ammonia < 10 uMol/L (11-32)
[2024-09-01 17:19] LABS: Glucose Estimated Average 88 mg/dL (80-131); Hemoglobin A1C 4.7 % Hgb (4.8-6.0)
[2024-09-01 17:22] LABS: Vitamin B12 472 pg/mL (211-911); Vitamin D 25 Hydroxy Total 49.9 ng/mL (7.3-40.2)
[2024-09-01 17:30] LABS: Alanine Aminotransferase 23 U/L (10-49); Alkaline Phosphatase 74 U/L (46-116); Amylase 42 U/L (30-118); Anion Gap 13 (7-16); Aspartate Amino Transferase 23 U/L (0-34); BUN/Creatinine Ratio 11 Ratio (12-20); Bilirubin,Total 0.7 mg/dL (0.3-1.2); Blood Urea Nitrogen 8 mg/dL (9-23); Calcium 9.2 mg/dL (8.3-10.6); Calcium (Corrected) 9.2 mg/dL (8.5-10.1); Chloride 98 mMol/L (98-107); Creatinine (Component) 0.7 mg/dL (0.6-1.3); Free T4 (Free Thyroxine) 1.51 ng/dL (0.89-1.76); Glucose 89 mg/dL (74-106); Osmolality,Calculated 274 (275-295); Sodium 139 mMol/L (136-145); Thyroid Stimulating Hormone 2.31 uIU/mL (0.55-4.78); eGFR > 60 See Note
[2024-09-01 17:49] LABS: Potassium 2.6 mMol/L (3.4-5.1)
== END | disposition home or self-care (01) ==
LOC: COPL 16:12
PROVIDERS: PCP Family Medicine; Referring Provider Psychiatry & Neurology Neurology; Visit Provider Psychiatry & Neurology Neurology
DX: R27.0 Ataxia, unspecified (principal); E78.1 Pure hyperglyceridemia; G30.9 Alzheimer's disease, unspecified
CPT/HCPCS: 36415; 80053; 82140; 82150; 82306; 82607; 83036; 84439; 84443

== ENCOUNTER → 2024-09-27 | Outpatient (CLI) | payer MEDICARE, BC, SELFPAY ==
--- NOTE | 2024-09-27 14:00 | XR_ITS ---
Examination: CT abdomen, without intravenous contrast. CT pelvis, without intravenous contrast. CT abdomen, with intravenous contrast. CT pelvis, with intravenous contrast. 2-D sagittal coronal reconstructions. Date and time of exam:September 27, 2024 1409 hours INDICATIONS: Generalized abdominal pain shortness of breath diarrhea beginning 6 weeks ago CTDI: vol (mGy) 10 DLP: (mGycm) 558 Technique: Multiple 3.0 axial images of the abdomen and pelvis without intravenous contrast, 3.0 mm slice thickness. Multiple 3.0 postcontrast images abdomen and pelvis also obtained, post intravenous injection 60 cc [id number] 2-D sagittal coronal reconstructions Low dose protocols, automated exposure control, adjustment MA KV according to patient size FINDINGS: Mild enlargement cardiac contour No focal liver or splenic lesions No gallstones No pancreatic or adrenal mass Multiple fluid distended small bowel loops with small bowel wall thickening No hydronephrosis No bowel obstruction Absent appendix No diverticulitis Intact urinary bladder Absent uterus Prominent osteopenia Impression: Mildly fluid distended small bowel loops with small bowel wall thickening, enteritis pattern such as Crohn's disease, clinical correlation advised
== END | disposition home or self-care (01) ==
LOC: CCTX 13:40
PROVIDERS: PCP Registered Nurse; Referring Provider Psychiatry & Neurology Neurology; Visit Provider Psychiatry & Neurology Neurology
DX: K63.89 Other specified diseases of intestine (principal)
CPT/HCPCS: 74178; A4649; Q9967

== ENCOUNTER → 2025-02-08 | Outpatient (CLI) | payer MEDICARE, BC, SELFPAY ==
[2025-02-08 10:47] LABS: Alanine Aminotransferase 26 U/L (10-49); Albumin, Serum 4.6 gm/dL (3.4-4.8); Albumin/Globulin Ratio 2.6 (1.2-2.2); Alkaline Phosphatase 80 U/L (46-116); Anion Gap 9 (7-16); Aspartate Amino Transferase 26 U/L (0-34); BUN/Creatinine Ratio 13 Ratio (12-20); Bilirubin,Total 0.7 mg/dL (0.3-1.2); Blood Urea Nitrogen 10 mg/dL (9-23); Calcium 9.6 mg/dL (8.3-10.6); Calcium (Corrected) 9.6 mg/dL (8.5-10.1); Carbon Dioxide 29.2 mMol/L (20.0-31.0); Cardiac Risk Estimate 2.8 RATIO (3.7-5.6); Chloride 106 mMol/L (98-107); Cholesterol 156 mg/dL (132-200); Creatinine (Component) 0.8 mg/dL (0.6-1.3); Free T3 2.4 pg/mL (2.3-4.2); Free T4 (Free Thyroxine) 1.38 ng/dL (0.89-1.76); Globulin 1.8 gm/dL (2.3-3.5); Glucose 90 mg/dL (74-106); HDL Cholesterol 55 mg/dL (40-60); LDL Cholesterol,Calculated 68 mg/dL (0-130); Osmolality,Calculated 285 (275-295); Potassium 3.7 mMol/L (3.4-5.1); Sodium 144 mMol/L (136-145); Thyroid Stimulating Hormone 2.70 uIU/mL (0.55-4.78); Total Protein 6.4 gm/dL (5.7-8.2); Triglycerides 166 mg/dL (30-150); eGFR > 60 See Note
[2025-02-08 10:48] LABS: Folate 11.55 ng/mL (>5.38); Vitamin B12 424 pg/mL (211-911)
[2025-02-15 06:54] LABS: Copper* 93 mcg/dL (70-175); Zinc, Plasma* 70 mcg/dL (60-130)
== END | disposition home or self-care (01) ==
PROVIDERS: PCP Registered Nurse; Referring Provider Family Medicine; Visit Provider Registered Nurse
DX: E78.5 Hyperlipidemia, unspecified (principal); E53.8 Deficiency of other specified B group vitamins; E61.0 Copper deficiency; E60 Dietary zinc deficiency; E07.9 Disorder of thyroid, unspecified
CPT/HCPCS: 36415; 80053; 80061; 82525; 82607; 82746; 84439; 84443; 84481; 84630